=== PATIENT | male | born 1960 ===

== ENCOUNTER → 2018-02-13 | Outpatient (CLI) | payer OTHER | LOC: FIMAGING 08:46 | PROVIDERS: ATTEND Physician Assistant | DX: N50.3 Cyst of epididymis (principal) ==

== ENCOUNTER 2018-07-21 17:01 | Inpatient (IN) | payer OTHER ==
[2018-07-21] MEDS ORDERED: NS 500 ML IV ONE (17:07)
[2018-07-21] MEDS ORDERED: ONDANSETRON 4 MG/2 ML VIAL IVP ONE (17:07)
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
[2018-07-21 18:04] LABS: PLATELET COUNT 185 10^3/uL (150-400)
[2018-07-21] MEDS ORDERED: HYDROmorphONE/DILAUDID 2 MG/ML INJ IVP ONE (18:05)
[2018-07-21] MEDS ORDERED: ceFAZolin 2 GM/DEXTROSE 100 ML IV ONE ×2 (18:06→19:24)
[2018-07-21] MEDS ORDERED: ONDANSETRON 4 MG/2 ML VIAL IVP PRN ×2 (19:23→21:00)
[2018-07-21] MEDS ORDERED: D5W 1/2 NS W/ 20 KCl/L 1,000 ML IV SCH (19:30)
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
[2018-07-21] MEDS: HYDROmorphONE/DILAUDID 1 MG/ML INJ IVP PRN ×2 (20:33→23:02)
[2018-07-21] MEDS ORDERED: BUPIVACAINE/EPI 0.25% 30 ML SDV ONE (20:35)
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
[2018-07-21] MEDS ORDERED: DEXAMETHASONE 4 MG/ML VIAL IVP PRN (21:00)
[2018-07-21] MEDS ORDERED: HYDROmorphONE/DILAUDID 2 MG/ML INJ IVP PRN (21:00)
[2018-07-21] MEDS ORDERED: NS 500 ML IV PRN (21:00)
[2018-07-21] MEDS ORDERED: fentaNYL 100 MCG/2 ML INJ IVP PRN (21:00)
[2018-07-21] MEDS ORDERED: HYDROCODONE/APAP 5/325 TAB PO PRN (21:00)
[2018-07-21] MEDS ORDERED: oxyCODONE IR 5 MG TAB PO PRN (21:00)
[2018-07-21] MEDS ORDERED: NALOXONE HCL 0.4 MG/ML INJ IVP PRN (21:00)
[2018-07-21] MEDS ORDERED: ALBUTEROL 3 ML DEYVIAL IH PRN (21:00)
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
[2018-07-21] MEDS ORDERED: PROPOFOL/EMULSION 500 MG/50 ML BOTTLE IV ONE (21:04)
[2018-07-21] MEDS ORDERED: DEXAMETHASONE 4 MG/ML VIAL ONE (21:22)
[2018-07-21] MEDS ORDERED: ONDANSETRON 4 MG/2 ML VIAL ONE (21:22)
[2018-07-21] MEDS ORDERED: fentaNYL 100 MCG/2 ML INJ ONE (21:26)
[2018-07-21] MEDS ORDERED: SUGAMMADEX SODIUM 200 MG/2 ML VIAL IVP ONE (21:42)
--- NOTE | 2018-07-21 22:08 | POSTANESTH ---
Post Anesthetic Evaluation Cardiovascular Status: Normal, Stable Respiratory Status: Normal, Stable Level of Consciousness/Mental Status: Can Participate in Eval Pain Control: Adequate, Prn Tx Ordered Nausea/Vomiting Control: Adequate, Prn Tx Ordered Complications Possibly Related to Anesthesia: None Noted
--- NOTE | 2018-07-21 22:10 | POSTOPPROG ---
Post Op Note Date of Operation: 07/21/18 Surgeon: Delonte Blanc Pre-op Diagnosis: R plateau fx Post-op Diagnosis: same Indication: unstable knee Procedure: R ex fix Inf/Abcess present in the surg proc area at time of surgery?: No EBL: Minimal
[2018-07-21] MEDS: oxyCODONE IR 5 MG TAB PO PRN (23:32)
[2018-07-22 04:47] LABS: PLATELET COUNT 174 10^3/uL (150-400)
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
[2018-07-22] MEDS: ceFAZolin 2 GM/DEXTROSE 100 ML IV SCH ×2 (05:26→13:12)
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
[2018-07-22] MEDS: oxyCODONE IR 5 MG TAB PO PRN ×5 (06:24→20:08)
[2018-07-22] MEDS: ENOXAPARIN 40 MG/0.4 ML SYR SC SCH (08:37)
[2018-07-22] MEDS ORDERED: METHOCARBAMOL 750 MG TAB PO SCH (09:00)
[2018-07-22] MEDS: METHOCARBAMOL 750 MG TAB PO PRN ×3 (09:17→16:44)
[2018-07-22] MEDS: ACETAMINOPHEN 500 MG TAB PO SCH ×2 (09:17→16:44)
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
[2018-07-22] MEDS: LIDOCAINE 4%/MENTHOL 1% PATCH TD SCH (13:07)
--- NOTE | 2018-07-22 14:03 | SOAPPROG ---
SOAP Progress Note Assessment/Plan: Assessment: 58 y/o male POD#1 from a right tib/fib ex-fix. Stable condition Plan: Change dressing 2/2 saturation prn ice 20 min on/off around the clock PO pain medication elevation (Foot above ankle, ankle above, knee) Lovenox DVT PPx PT-NWB RLE d/c planning for tomorrow CT reviewed with Dr Blanc 07/22/18 13:59 Subjective: 58 y/o male with right proximal tib/fib fx s/p ex-fix of his tibia. Patient pain is better controlled than this morning. He is doing well with robaxin, oxycodone and tylenol for pain control. He denies any CP, SOB, abdominal pain, nausea, vomiting, dizziness. Objective: Vital Signs Temp Pulse Resp BP Pulse Ox 36.7 C 73 17 117/68 98 07/22/18 11:53 07/22/18 11:53 07/22/18 11:53 07/22/18 11:53 07/22/18 11:53 Laboratory Results 07/22/18 04:26 07/21/18 07/22/18 07/23/18 05:59 05:59 05:59 Intake Total 1700 1065 Output Total 685 600 Balance 1015 465 AOx4 Ex-Fix in place Distal Ex-Fix pin sites saturated 2+ Dorsal Pedal Pulse NV intact through RLE - Time Spent With Patient Time Spent With Patient: 20 minutes greater than half the time discussing care and plans - Pending Discharge Pending Discharge Within 24 Hours: No Pending Discharge Within 48 Hours: Yes Pending Discharge Date: 07/24/18 Pending Discharge Time: 11:00 ICD10 Worksheet Patient Problems: Problems Problem Status Onset Fracture of head of right fibula Acute Fracture of right tibial plateau Acute Left rib fracture Acute
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
[2018-07-22] MEDS: HYDROmorphONE/DILAUDID 1 MG/ML INJ IVP PRN ×2 (18:03→21:14)
[2018-07-22] MEDS ORDERED: PATCH REMOVAL 1 EA PATCH TD SCH (21:00)
[2018-07-23] MEDS: oxyCODONE IR 5 MG TAB PO PRN ×3 (00:06→11:52)
[2018-07-23] MEDS: ACETAMINOPHEN 500 MG TAB PO SCH ×2 (00:39→10:02)
[2018-07-23] MEDS: METHOCARBAMOL 750 MG TAB PO PRN ×2 (08:32→14:20)
[2018-07-23] MEDS: ENOXAPARIN 40 MG/0.4 ML SYR SC SCH (08:32)
[2018-07-23] MEDS: LIDOCAINE 4%/MENTHOL 1% PATCH TD SCH (08:33)
[2018-07-23 11:18] VITALS: BP 110/86
[2018-07-23] MEDS ORDERED: SENNOSIDES/DOCUSATE SODIUM TAB PO ONE (11:50)
[2018-07-23] MEDS ORDERED: POLYETHYLENE GLYCOL 3350 17 GM PKT ONE (11:50)
[2018-07-23] MEDS ORDERED: LACTULOSE 20 GM/30 ML UDCUP PO PRN (11:52)
[2018-07-23] MEDS ORDERED: BISACODYL 10 MG SUPP PR PRN (11:52)
[2018-07-23] MEDS ORDERED: MAGNESIUM HYDROXIDE 30 ML UDCUP PO PRN (11:52)
[2018-07-23] MEDS ORDERED: POLYETHYLENE GLYCOL 3350 17 GM PKT PO PRN (11:52)
[2018-07-23] MEDS ORDERED: SENNOSIDES/DOCUSATE SODIUM TAB PO SCH (12:00)
--- NOTE | 2018-07-23 13:53 | SOAPPROG ---
SOAP Progress Note Assessment/Plan: Assessment: 58 y/o male POD#2 from a right tib/fib ex-fix. Stable condition Plan: Change dressing 2/2 saturation prn ice 20 min on/off around the clock PO pain medication elevation (Foot above ankle, ankle above, knee) Lovenox DVT PPx PT-NWB RLE d/c planning 07/22/18 13:59 07/23/18 13:50 Subjective: Patient is feeling better and pain under control in his right lower extremity. He began to have more recent pain into left rib cage after twisting to get out of bed. Patient has had good benefits from the oral muscle relaxer which he is due for another at this time. Patient denies any fever, chills, SOB, cough, wheeze, Chest pain. Objective: Vital Signs Temp Pulse Resp BP Pulse Ox 36.6 C 84 17 110/86 H 96 07/23/18 11:16 07/23/18 11:16 07/23/18 11:16 07/23/18 11:16 07/23/18 11:16 Laboratory Results 07/22/18 04:26 07/22/18 07/23/18 07/24/18 05:59 05:59 05:59 Intake Total 1700 2365 300 Output Total 685 4105 925 Balance 8323 -3590 -[address] Distal pin sites have old drainage 2+ dorsal pedal pulse NV intact bilaterally - Pending Discharge Pending Discharge Within 24 Hours: Yes Pending Discharge Date: 07/24/18 Pending Discharge Time: 11:00 ICD10 Worksheet Patient Problems: Problems Problem Status Onset Fracture of head of right fibula Acute Fracture of right tibial plateau Acute Left rib fracture Acute
--- NOTE | 2018-07-23 13:56 | PDDCSUM ---
Discharge Summary Discharge Summary: 58 y/o male who [facility] [place] [facility] and was [facility]IB[facility] to [facility] Emergency Department. Patient was admitted to Dr Blanc service and was consented for an Ex-fix of his right proximal tibia fracture. Patient tolerated the procedure and was admitted for pain control. On POD#2 he was medically and orthopedically stable for d/c to home. Patient will be d/c alexx on oral pain medications. He will keep the leg elevated and icing. Follow-up with Larry Stewart PA-C on 07/29/18. Patient will be NWB on the right lower extremity.
--- NOTE | 2018-07-23 16:17 | ASMTLACE ---
LILAE Length of stay for Answers: 3 days current admission Acuity / Level of Answers: Yes Care: Did the patient have an inpatient admission? # of Emergency department Answers: 1-2 visits in the last 6 months Score: 7 Date Signed: 07/23/2018 04:16 PM Electronically Signed By:BLAYNE Hdz
--- NOTE | 2018-07-23 16:45 | SOAPPROG ---
[facility] Progress Note Assessment/Plan: Assessment: PATIENT WITH A LEFT POSTERIOR MINIMALLY DISPLACED RIB FRACTURE WHICH IS CAUSING HIM INCREASING PAIN AND SPASM TODAY. HE DOES NOT SEEM TO BE HELP MUCH BY MUSCLE RELAXANT RIB PAIN IS WORSE THAN HIS SURGICAL PAIN IN HIS RIGHT TIB-FIB TIBIAL PLATEAU FRACTURE REPAIR CHEST X-RAY IS CLEAR HEENT NONICTERIC CHEST CLEAR AND SYMMETRIC BUT TENDER OVER THE LEFT POSTERIOR LOWER RIBS COR REGULAR RHYTHM ABDOMEN SOFT Plan: CONTINUE SUPPORTIVE CARE/CONSIDER LIDODERM PATCH FOR THE RIB FRACTURE 07/23/18 16:43 Objective: Vital Signs Temp Pulse Resp BP Pulse Ox 36.6 C 84 17 110/86 H 96 07/23/18 11:16 07/23/18 11:16 07/23/18 11:16 07/23/18 11:16 07/23/18 11:16 Laboratory Results 07/22/18 04:26 07/22/18 07/23/18 07/24/18 05:59 05:59 05:59 Intake Total 1700 2365 300 Output Total 057 3447 924 Balance 1015 -1735 -625 ICD10 Worksheet Patient Problems: Problems Problem Status Onset Fracture of head of right fibula Acute Fracture of right tibial plateau Acute Left rib fracture Acute
--- NOTE | 2018-07-23 16:47 | SOAPPROG ---
[facility] Progress Note Assessment/Plan: Assessment: PATIENT WITH A LEFT POSTERIOR MINIMALLY DISPLACED RIB FRACTURE WHICH IS CAUSING HIM INCREASING PAIN AND SPASM TODAY. HE DOES NOT SEEM TO BE HELP MUCH BY MUSCLE RELAXANT RIB PAIN IS WORSE THAN HIS SURGICAL PAIN IN HIS RIGHT TIB-FIB TIBIAL PLATEAU FRACTURE REPAIR CHEST X-RAY IS CLEAR HEENT NONICTERIC CHEST CLEAR AND SYMMETRIC BUT TENDER OVER THE LEFT POSTERIOR LOWER RIBS COR REGULAR RHYTHM ABDOMEN SOFT Plan: CONTINUE SUPPORTIVE CARE/CONSIDER LIDODERM PATCH FOR THE RIB FRACTURE 07/23/18 16:43 07/23/18 16:45 PATIENT HEALING WELL AFTER KNEE RECONSTRUCTION WITH EXTERNAL FIXER CHEST CLEAR AND SYMMETRIC WITH MINIMAL TENDERNESS OVER THE LEFT POSTERIOR RIB FRACTURE COR REGULAR RHYTHM HEENT NONICTERIC BACK NONTENDER WITH NO CVA TENDERNESS NEURO EXAM ALERT AND COOPERATIVE WITH PHYSIOLOGIC AND SYMMETRIC EXAM EXCEPT RELATED TO THE RIGHT KNEE TERTIARY EXAM COMPLETED/PLAN PROBABLE SLIGHT OFF CARE TO DR. SUTHERLAND AND HIS TEAM Objective: Vital Signs Temp Pulse Resp BP Pulse Ox 36.6 C 84 17 110/86 H 96 07/23/18 11:16 07/23/18 11:16 07/23/18 11:16 07/23/18 11:16 07/23/18 11:16 Laboratory Results 07/22/18 04:26 07/22/18 07/23/18 07/24/18 05:59 05:59 05:59 Intake Total 1700 0985 300 Output Total 515 2587 922 Balance 1015 -1735 -625 ICD10 Worksheet Patient Problems: Problems Problem Status Onset Fracture of head of right fibula Acute Fracture of right tibial plateau Acute Left rib fracture Acute
== END 2018-07-23 16:50 | disposition home or self-care (01) | DRG 493 ==
LOC: EDUNIT# → F3N 19:44
PROVIDERS: ADMIT Surgery; ATTEND Surgery
PROC: 0QS Lower Bones, Reposition (ICD-10-PCS; principal; 2018-07-21 21:00)
PROC: BQ1DZZZ Fluoroscopy of Right Lower Leg (ICD-10-PCS; principal; 2018-07-21 21:00)
DX: S82.141A Displaced bicondylar fracture of right tibia, initial encounter for closed fracture (principal); S22.32XA Fracture of one rib, left side, initial encounter for closed fracture; V00.328A Other snow-ski accident, initial encounter; Y93.23 Activity, snow (alpine) (downhill) skiing, snowboarding, sledding, tobogganing and snow tubing; Y92.838 Other recreation area as the place of occurrence of the external cause; Y99.0 Civilian activity done for income or pay
CPT/HCPCS: 96374; 97116-GP; 97162-GP; 97530-GP; C1713; J0690; J1100; J1170; J1650; J2405; J2704; J3010

== ENCOUNTER 2018-08-02 05:35 | Inpatient (IN) | payer OTHER ==
[2018-08-02] MEDS ORDERED: LR 1,000 ML IV ONE (05:51)
[2018-08-02] MEDS ORDERED: MIDAZOLAM 2 MG/2 ML VIAL IVP ONE (06:41)
--- NOTE | 2018-08-02 06:41 | PDANEPAE ---
ANE Past Medical History - Cardiovascular History Hx Hypertension: No Hx Arrhythmias: No Hx Chest Pain: No Hx Coronary Artery / Peripheral Vascular Disease: No Hx CHF / Valvular Disease: No Hx Palpitations: No - Pulmonary History Hx COPD: No Hx Asthma/Reactive Airway Disease: No Hx Recent Upper Respiratory Infection: No Hx Oxygen in Use at Home: No Hx Sleep Apnea: No Sleep Apnea Screening Result - Last Documented: Negative - Neurologic History Hx Cerebrovascular Accident: No Hx Seizures: No Hx Dementia: No - Endocrine History Hx Diabetes: No Hypothyroid: No Hyperthyroid: No Obesity: no - Renal History Hx Renal Disorders: No - Liver History Hx Hepatic Disorders: No - Neurological & Psychiatric Hx Hx Neurological and Psychiatric Disorders: No - Cancer History Hx Cancer: No - Congenital Disorder History Hx Congenital Disorders: No - GI History GERD: no Hx Gastrointestinal Disorders: No - Other Health History Other Health History: wears glasses/contacts - Chronic Pain History Chronic Pain: No - Surgical History Prior Surgeries: Right external fixation tibial plateau fx, 07/21/2018. Right achilles tendon repair. Right & left inguinal hernai repair ANE Review of Systems Review of Systems: - Exercise capacity Exercise capacity: >=4 METS, limited by disability METS (RN): 6 METS ANE Patient History - Allergies Allergies/Adverse Reactions: No Known Allergies Allergy (Verified 07/21/18 17:19) - Home Medications Home Medications: Acetaminophen [Tylenol ES 500 mg (*)] 1,000 mg PO Q8H 07/26/18 [Last Taken 08/01] Methocarbamol [Robaxin 750 mg (*)] 750 mg PO QID PRN 07/26/18 [Last Taken 03:00] oxyCODONE IR [Oxycodone Ir (*)] 5 mg PO Q5H PRN 07/26/18 [Last Taken 08/02/18 0001] Cholecalciferol (Vitamin D3) [Vitamin D3] 5,000 unit PO DAILY 08/01/18 [Last Taken 08/01/18] Enoxaparin [Lovenox 40 MG (*)] 40 mg SQ DAILY 08/01/18 [Last Taken 08/01/18] Herbals/Supplements -Info Only 1 ea PO DAILY 08/01/18 [Last Taken 08/01/18 0800] Multivitamins [Multivitamin (*)] 1 each PO DAILY 08/01/18 [Last Taken 08/01/18 0800] Sennosides/Docusate Sodium [Senokot-S (OTC)] 2 each PO BID 08/01/18 [Last Taken 08/01/18 21:00] traMADol [Ultram 50 mg (*)] 50 mg PO Q6H PRN 08/01/18 [Last Taken 08/02/18 04:00 ] - NPO status NPO Since - Liquids (Date): 08/02/18 NPO Since - Liquids (Time): 04:00 NPO Since - Solids (Date): 08/01/18 NPO Since - Solids (Time): 19:00 - Anes Hx Anes Hx: no prior problems - Smoking Hx Smoking Status: Never smoked Marijuana use: No - Alcohol Use Alcohol Use: Rarely - Family Anes Hx Family Anes Hx: neg - N/A Family Hx Anesthesia Complications: none ANE Labs/Vital Signs - Vital Signs Blood Pressure: 122/81 Heart Rate: 79 Respiratory Rate: 16 O2 Sat (%): 95 Height: 182.88 cm Weight: 72.575 kg ANE Physical Exam - Airway Neck exam: FROM Mallampati Score: Class 1 Mouth exam: normal dental/mouth exam - Pulmonary Pulmonary: no respiratory distress, no rales or rhonchi, clear to auscultation - Cardiovascular Cardiovascular: regular rate and rhythym, no murmur, rub, or gallop ANE Anesthesia Plan Anesthesia Plan: general endotracheal anesthesia Regional Anesthesia: continuous NB, adductor canal FNB, popliteal SNB Total IV Anesthesia: No
[2018-08-02] MEDS ORDERED: BUPIVACAINE/EPI 0.25% 30 ML SDV ONE (06:49)
[2018-08-02] MEDS ORDERED: PROPOFOL 200 MG/20 ML VIAL ONE (07:02)
[2018-08-02] MEDS ORDERED: fentaNYL 100 MCG/2 ML INJ ONE ×3 (07:02→11:31)
[2018-08-02] MEDS ORDERED: ROCURONIUM 50 MG/5 ML VIAL ONE (07:03)
[2018-08-02] MEDS ORDERED: LIDOCAINE 2% 5 ML SDV ONE (07:03)
[2018-08-02] MEDS ORDERED: DEXAMETHASONE 4 MG/ML VIAL ONE (07:03)
[2018-08-02] MEDS ORDERED: ONDANSETRON 4 MG/2 ML VIAL ONE (07:03)
[2018-08-02] MEDS ORDERED: BUPIVACAINE 0.5% 30 ML SDV ONE (07:07)
[2018-08-02] MEDS ORDERED: ceFAZolin 2 GM/DEXTROSE 100 ML IV ONE (07:09)
--- NOTE | 2018-08-02 07:09 | PDHPUP ---
History & Physical Update H&P update statement: This history and physical update is based on an assessment of the patient which was completed after admission or registration (within 24 hours), but prior to the surgery/procedure. H&P update: no change in patient's condition since H&P completed
[2018-08-02] MEDS ORDERED: PHENYLEPHRINE HCL 100 MCG/ML SYR ONE (07:49)
[2018-08-02] MEDS ORDERED: LR 500 ML IV PRN (08:21)
[2018-08-02] MEDS ORDERED: MEPERIDINE 25 MG/0.5 ML AMP IVP PRN (08:21)
[2018-08-02] MEDS ORDERED: PHENYLEPHRINE HCL 100 MCG/ML SYR IVP PRN (08:21)
[2018-08-02] MEDS ORDERED: NALOXONE HCL 0.4 MG/ML INJ IVP PRN (08:21)
[2018-08-02] MEDS ORDERED: ONDANSETRON 4 MG/2 ML VIAL IVP PRN ×2 (08:21→10:27)
[2018-08-02] MEDS ORDERED: PROMETHAZINE HCL 25 MG/ML INJ IVP PRN (08:21)
[2018-08-02] MEDS ORDERED: ROPIVACAINE 0.2% 1,100 MG in PUMP SET 1 EA NB SCH ×2 (09:00→09:15)
[2018-08-02] MEDS ORDERED: ONDANSETRON DISINTEGRATING 4 MG TAB PO PRN (10:27)
[2018-08-02] MEDS ORDERED: LR 1,000 ML IV SCH (10:30)
[2018-08-02] MEDS: fentaNYL 100 MCG/2 ML INJ IVP PRN ×3 (11:15→11:31)
--- NOTE | 2018-08-02 11:49 | GOP ---
[f rep st] OPERATIVE REPORT DATE OF OPERATION: 08/02/2018 SURGEON: Delonte Blanc MD NEUROSURGEON: Delonte Blanc M.D. PRESCHOOL ASSISTANT: Larry Stewart M.D. ANESTHESIA: General with indwelling popliteal and adductor canal blocks. PREOPERATIVE DIAGNOSIS: Right bicondylar tibial plateau and retained external fixator. POSTOPERATIVE DIAGNOSIS: Right bicondylar tibial plateau and retained external fixator. PROCEDURE PERFORMED: 1. Removal of external fixator. 2. Open reduction, internal fixation, bicondylar tibial plateau fracture through medial and lateral incisions. 3. Removal of external fixator. FINDINGS: SPECIMENS: None. ESTIMATED BLOOD LOSS: 5 mL. INDICATIONS: This is a male who injured this skiing. I placed him in an external fixator given the s evere nature of the fracture and the instability. I followed him clinically and was following as rosemarie ropriate. Elected for definitive surgical intervention. We discussed risks of nonunion, malunion, c ontinued pain, pin site infection, arthritis, stiffness, malreduction, blood clot, and elected to pro ceed. Informed consent obtained. All questions were answered. He was marked preoperatively. DESCRIPTION OF PROCEDURE: He was taken to the operative suite. Blocks were administered per Anesthes ia. General anesthesia was administered. The external fixator was removed. The leg was scrubbed an d then prepped and draped in normal fashion. I covered the external pin sites in the foot. I then u sed a tourniquet and exsanguinated the leg and put this up to 250. Made a lateral approach through t he IT band. Exposed the fracture sites laterally. Dissected distally to make a path for the plate. The fracture was widely displaced. Made an approach medially and exposed the medial fractures as we ll. Obtained provisional reductions and held these with Isaebl wire. Placed a medial plate and h eld this provisionally. Checked this fluoroscopically and then placed a distal screw in this. I then placed a lateral plate using the aiming arm. I brought this to bone distally with provisional fixat ion proximally while clamping the fracture, the periarticular fracture. I felt I had the fracture re duced and the plates in good position. Filled nonlocking screws proximally and distally first in bot h plates to bring the plate to bone and to achieve compression across the joint and the fracture site s. I then filled with lockers. I replaced some additional bone in the anterior fracture line latera lly that had been removed prior. I felt that I had a good reduction fluoroscopically, good range of motion; he was stable. Final x-rays were taken. He was closed with #1 Vicryl, repaired the MCL and the ITB and 0 Vicryl, 2-0 Vicryl, 3-0 nylon and Dermabond. He was taken to the PACU in stable condit ion. IMPLANTS: Synthes medial and lateral tibial plateau plates, locking and nonlocking screws. COMPLICATIONS: None. DRAINS: None. CONDITION: Stable. /[id number]/MODL
[2018-08-02] MEDS ORDERED: oxyCODONE IR 5 MG TAB PO PRN (12:03)
[2018-08-02] MEDS ORDERED: ACETAMINOPHEN 500 MG TAB PO PRN (12:03)
[2018-08-02] MEDS ORDERED: HYDROCODONE/APAP 5/325 TAB PO PRN (12:03)
--- NOTE | 2018-08-02 12:11 | POSTANESTH ---
Post Anesthetic Evaluation Cardiovascular Status: Similar to Pre-Op Cond Respiratory Status: Normal, Stable Level of Consciousness/Mental Status: Can Participate in Eval Pain Control: Adequate, Prn Tx Ordered Nausea/Vomiting Control: Adequate, Prn Tx Ordered Complications Possibly Related to Anesthesia: None Noted
[2018-08-02] MEDS: ceFAZolin 2 GM/DEXTROSE 100 ML IV SCH ×2 (14:20→22:11)
[2018-08-02] MEDS: oxyCODONE IR 5 MG TAB PO PRN ×2 (22:10→22:47)
[2018-08-02] MEDS: METHOCARBAMOL 750 MG TAB PO PRN (22:15)
[2018-08-03] MEDS ORDERED: morphINE PCA 30 MG/30 ML PCA IV PRN (02:09)
[2018-08-03] MEDS ORDERED: NALOXONE HCL 0.4 MG/ML INJ IVP PRN ×2 (02:09→07:55)
[2018-08-03] MEDS: oxyCODONE IR 5 MG TAB PO PRN ×5 (02:40→23:19)
[2018-08-03] MEDS ORDERED: POLYETHYLENE GLYCOL 3350 17 GM PKT PO PRN (07:54)
[2018-08-03] MEDS ORDERED: LACTULOSE 20 GM/30 ML UDCUP PO PRN (07:54)
[2018-08-03] MEDS ORDERED: BISACODYL 10 MG SUPP PR PRN (07:54)
[2018-08-03] MEDS ORDERED: MAGNESIUM HYDROXIDE 30 ML UDCUP PO PRN (07:54)
[2018-08-03] MEDS: CHOLECALCIFEROL VIT D3 2,000 UNITS TAB/CAP PO SCH (08:01)
[2018-08-03] MEDS: METHOCARBAMOL 750 MG TAB PO PRN ×3 (08:01→20:34)
[2018-08-03] MEDS: ACETAMINOPHEN 325 MG TAB PO PRN ×3 (08:02→20:34)
[2018-08-03] MEDS: ENOXAPARIN 40 MG/0.4 ML SYR SC SCH (08:03)
[2018-08-03] MEDS ORDERED: KETOROLAC 30 MG/1 ML SDV ONE (08:12)
[2018-08-03] MEDS ORDERED: KETOROLAC 30 MG/1 ML SDV IVP ONE (08:13)
[2018-08-03] MEDS: HYDROmorphONE/DILAUDID 6 MG/30 ML PCA IV PRN ×2 (08:46→10:15)
--- NOTE | 2018-08-03 08:48 | SOAPPROG ---
[facility] Progress Note Assessment/Plan: Assessment: 58-year-old male who is postop day 1 from a right tibial plateau fracture. Plan: Dilaudid TRAIN CONTROL ELECTRONIC TECHNICIAN pump for pain control Ice every 20 min on 20 min off Elevation Toradol IV 30 mg q.6 hours PT and OT Non weight-bearing right lower extremity Plan discussed with Dr. Blanc 08/03/18 08:45 Subjective: 58-year-old male who is postop day 1 From a right tibial plateau fracture ORIF. Patient is having difficulty with pain control currently. His blocks stopped working around 10:00 p.m. Last night the switched over to a morphine TRAIN CONTROL ELECTRONIC TECHNICIAN pump around 2:00 a.m. This is done little to help control his pain. He has now recently been switched to a Dilaudid TRAIN CONTROL ELECTRONIC TECHNICIAN pump. Patient describes the pain as a deep bone ache in through his tibia. Patient denies any nausea or vomiting numbness tingling lightheadedness dizziness fever chest pain shortness of breath abdominal pain. Objective: Alert and oriented Moderate discomfort Dressing small drainage along the Delmar wrap 2+ dorsal pedal pulse Neurological intact Less than 2 capillary refill Vital Signs Temp Pulse Resp BP Pulse Ox 36.9 C 87 12 129/78 H 90 L 08/03/18 07:40 08/03/18 07:40 08/03/18 07:40 08/03/18 07:40 08/03/18 07:40 08/02/18 08/03/18 08/04/18 05:59 05:59 05:59 Intake Total 2318 Output Total 1875 400 Balance 443 -400 - Pending Discharge Pending Discharge Within 24 Hours: No Pending Discharge Within 48 Hours: No ICD10 Worksheet Patient Problems: Problems Problem Status Onset Fracture of head of right fibula Acute Fracture of right tibial plateau Acute Left rib fracture Acute
[2018-08-03] MEDS: SENNOSIDES/DOCUSATE SODIUM TAB PO SCH ×2 (11:00→20:35)
--- NOTE | 2018-08-03 13:54 | ASMTCMCOM ---
CM Note CM Note Notes: CM reviewed pt's chart for d/c planning. Pt is a 58 y/o male who underwent removal of his external faxator and open reduction, internal fixation, bicondylar tibial plateau fracture through medial and lateral incisions. OT/ PT have not been ordered. No CM needs anticipated at this time: CM will follow for changes. D/C Plan: Anticipate independent. Date Signed: 08/03/2018 01:53 PM Electronically Signed By:Munira Torre
[2018-08-03] MEDS: KETOROLAC 30 MG/1 ML SDV IVP PRN ×2 (14:26→20:36)
--- NOTE | 2018-08-03 17:53 | PDMN ---
Medical Necessity Medical necessity: MCG PGPM Pain Management: 58 yo s/p knee tibial plateau ORIF w/ external fixator removal (R) - initially OBS but pt w/ severe post op pain requiring, first, morphine CALF SKINNER overnight with poor effect. Started Dilaudid CALF SKINNER requiring additional MN, IP status. Change to IP status 08/03/18@1441 per MD order as pain was unresponsive to standard post op pain meds.
[2018-08-03] MEDS ORDERED: HYDROmorphONE/DILAUDID 1 MG/ML INJ IVP PRN (21:35)
[2018-08-04] MEDS: METHOCARBAMOL 750 MG TAB PO PRN ×2 (02:23→09:17)
[2018-08-04] MEDS: ACETAMINOPHEN 325 MG TAB PO PRN ×2 (02:24→09:16)
[2018-08-04] MEDS: KETOROLAC 30 MG/1 ML SDV IVP PRN ×2 (02:25→09:17)
[2018-08-04] MEDS: oxyCODONE IR 5 MG TAB PO PRN ×2 (06:38→12:22)
[2018-08-04] MEDS: CHOLECALCIFEROL VIT D3 2,000 UNITS TAB/CAP PO SCH (07:05)
[2018-08-04] MEDS: ENOXAPARIN 40 MG/0.4 ML SYR SC SCH (07:06)
[2018-08-04] MEDS: SENNOSIDES/DOCUSATE SODIUM TAB PO SCH (07:06)
--- NOTE | 2018-08-04 10:00 | SOAPPROG ---
[facility] Progress Note Assessment/Plan: Assessment: orif R plateau 08/02 Plan: non wt bearing right leg keep dry elevate ice may remove dressing in 2 days likely d/c today 08/04/18 09:59 Subjective: pain better Objective: Vital Signs Temp Pulse Resp BP Pulse Ox 37.1 C 90 14 122/80 H 99 08/04/18 07:56 08/04/18 07:56 08/04/18 07:56 08/04/18 07:56 08/04/18 07:56 08/03/18 08/04/18 08/05/18 05:59 05:59 05:59 Intake Total 2318 1400 1000 Output Total 1875 1400 300 Balance 443 0 700 dressing cdi toes silt ICD10 Worksheet Patient Problems: Problems Problem Status Onset Fracture of head of right fibula Acute Fracture of right tibial plateau Acute Left rib fracture Acute
--- NOTE | 2018-08-04 11:01 | ASMTLACE ---
LACE Length of stay for Answers: Less than 1 day current admission # of Emergency department Answers: 1-2 visits in the last 6 months Score: 1 Date Signed: 08/04/2018 11:01 AM Electronically Signed By:Areli Demarco RN
[2018-08-04 12:01] VITALS: BP 109/73
--- NOTE | 2018-08-07 09:08 | PDDCSUM ---
Discharge Summary Discharge Summary: 58 y/o male who had a fall while skiing and suffered a tibial plateau fracture. He was placed into a ex-fix by Dr Blanc. After allowing for swelling to subside He was admitted for exfix removal as well as tibial plateau ORIF. He signed consent after undergoing a risk benefit analysis. He underwent the procedure on 08/02/2018 and once completed and stable he was transferred to the PACU and then the med-surg floor. On the floor he had difficulty with pain control and had a IV pain control with a DIRECTOR CHILD pump of diluadid. He was then transferred to oral medications, was seen by PT and OT. After he was stable on POD#2 from a medical and orthopedic standpoint he was discharged home. He will follow-up in [address] Blanc or Larry Stewart PA-C He will be on DVT PPx Non weight bearing on the Right Lower Extremity.
== END 2018-08-04 12:35 | disposition home or self-care (01) | DRG 494 ==
LOC: F3N 05:35 → OBSVTOIN 08-03 14:41
PROVIDERS: ADMIT Orthopaedic Surgery; ATTEND Orthopaedic Surgery
PROC: 0QSG04Z Reposition Right Tibia with Internal Fixation Device, Open Approach (ICD-10-PCS; principal; 2018-08-02 07:15)
PROC: 0QPGX5Z Removal of External Fixation Device from Right Tibia, External Approach (ICD-10-PCS; principal; 2018-08-02 07:15)
DX: S82.141A Displaced bicondylar fracture of right tibia, initial encounter for closed fracture (principal); G89.18 Other acute postprocedural pain; V00.328A Other snow-ski accident, initial encounter; Y93.23 Activity, snow (alpine) (downhill) skiing, snowboarding, sledding, tobogganing and snow tubing
CPT/HCPCS: 97116-GP; 97161-GP; 97165-GO; 97535-GO; C1713; G0378; J0690; J1100; J1170; J1650; J1885; J2250; J2270; J2370; J2405; J2704; J2795; J3010